=== PATIENT | female | born 1995 | race Caucasian/White ===

== ENCOUNTER 2017-09-11 14:31 | Emergency (ER) | END 2017-09-11 21:34 | disposition home or self-care (01) ==

== ENCOUNTER 2018-05-24 04:16 | Emergency (ER) | payer OTHER ==
[~2018-05-24] VITALS: Ht 157.5 cm; Wt 60.0 kg
[~2018-05-24 04:16] MED LIST: DOXY100T20 PO; FOLI-49 PO; GUAI1TBM12 PO; HYDR-4011 PO; IBUP-1542 PO; NAPR-985 PO
[2018-05-24 04:22] VITALS: Ht 157.5 cm; Wt 60.0 kg
[2018-05-24] MEDS ORDERED: ONDANSETRON (ODT) 4 MG TAB ODT STA (04:49)
[2018-05-24] MEDS ORDERED: IBUPROFEN 800 MG TAB PO ONE (05:00)
[2018-05-24 05:20] VITALS: BP 122/65; PULSE 78; RESP 18
[2018-05-24] MEDS ORDERED: IBUP-1542 PO (05:22)
[2018-05-24] MEDS ORDERED: NITR-58 PO (05:22)
--- NOTE | 2018-05-24 05:25 | ERD ---
ER Documentation Chief Complaint Chief Complaint R flank pain now,HAs&nausea x 4days HPI Patient is a 22-year-old female with previous kidney infection who presents with flank pain. The patient said that she has had migraine headache for the past 4 days and then right-sided flank pain. She said that her urine was cloudy and she thinks she might have a urine infection. She had chills but no fever. She tried tramadol yesterday. She called her primary doctor Dr. Jiménez but there were no appointments available until Friday. Therefore she decided to come to the emergency department. ROS All systems reviewed and are negative except as per history of present illness. Medications Home Meds Active Scripts Ibuprofen* (Motrin*) 600 Mg Tab, 600 MG PO Q6H PRN for PAIN AND OR ELEVATED TEMP, #30 TAB Prov:ALISA GUY MD 05/24/18 Nitrofurantoin Monohyd Macrocr* (Macrobid*) 100 Mg Capsr, 100 MG PO BID for 7 Days, CAP Prov:ALISA GUY MD 05/24/18 Naproxen* (Naprosyn*) 500 Mg Tablet, 500 MG PO BID PRN for PAIN AND/OR INFLAMMATION, #30 TAB Prov:MICAH,NAVIN 09/11/17 Guaifenesin/Dextromethorphan (Mucinex Dm ER 1,200-60 mg Tab) 1 Each Tbmp.12hr, 1 EACH PO BID for 3 Days, #20 TAB Prov:MICAH,NAVIN 09/11/17 Doxycycline Hyclate* (Doxycycline Hyclate*) 100 Mg Tablet.dr, 100 MG PO BID for 10 Days, #20 TAB Prov:MICAH,NAVIN 09/11/17 Ibuprofen* (Motrin*) 600 Mg Tab, 600 MG PO Q6, #30 TAB Prov:IRINA SAM PA-C 03/10/16 Hydrocodone/Acetaminophen ([place] 5-325 Tablet) 1 Each Tablet, 1 EACH PO Q6, #10 TAB Prov:IRINA SAM PA-C 03/10/16 Reported Medications Folic Acid* (Folic Acid*) 1 Mg Tablet, PO DAILY 12/25/11 Allergies Allergies: Coded Allergies: No Known Drug Allergy (Verified Allergy, Mild, 03/18/13) PMhx/Soc History of Surgery: Yes (Tonsillectomy) Anesthesia Reaction: No 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 Neck: Full range of motion. No meningismus. Resp: Clear to auscultation bilaterally Cardio: Regular rate and rhythm, no murmurs Abd: Soft, non tender, non distended. Normal bowel sounds Skin: No petechiae or rashes Back: No midline or flank tenderness Ext: No cyanosis, or edema Neur: Awake and alert Psych: Normal Mood and Affect Results 24 hrs Laboratory Tests Test 05/24/18 05:06 05/24/18 05:08 Bedside Urine pH (LAB) 6.0 Bedside Urine Protein (LAB) 1+ Bedside Urine Glucose (UA) Negative Bedside Urine Ketones (LAB) 3+ Bedside Urine Blood 1+ Bedside Urine Nitrite (LAB) Negative Bedside Urine Leukocyte Esterase (L 1+ POC Beta HCG, Qualitative NEGATIVE Current Medications Medications Dose Sig/Sue Start Time Status Last (Trade) Ordered Route PRN Stop Time Admin Dose Reason Admin Ibuprofen 800 mg ONCE ONCE 05/24/18 DC 05/24/18 (Motrin) PO 05:00 05/24/18 05:19 05:01 Ondansetron 4 mg ONCE STAT 05/24/18 DC 05/24/18 HCl (Zofran ODT 04:49 05/24/18 05:19 Odt) 04:50 Procedures/MDM Urine dip shows acute infection. Urine patency test is negative. Patient is a 22-year-old female who presents with what appears to be acute cystitis. I doubt pyelonephritis at this time. I doubt sepsis and the patient is well-appearing. I believe outpatient management is appropriate but the patient will need close follow-up with her primary doctor within 24-48 hours. She will be given a prescription for Macrobid and ibuprofen. She can return sooner for any worsening symptoms. Departure Diagnosis: Primary Impression: Cystitis Additional Impression: Flank pain Condition: Fair Patient Instructions: Cystitis Referrals: Dr. Jiménez Additional Instructions: Call your primary care doctor TOMORROW for an appointment during the next 1-2 days.See the doctor sooner or return here if your condition worsens before your appointment time. ALISA GUY MD May 24, 2018 05:25
== END 2018-05-24 05:32 | disposition home or self-care (01) ==
LOC: E/R 04:16
DX: N30.90 Cystitis, unspecified without hematuria (principal)
CPT/HCPCS: 81003; 81025; Z7502; Z7610; 99283

== ENCOUNTER 2018-10-22 17:34 | Emergency (ER) | payer OTHER ==
[~2018-10-22] VITALS: Ht 160 cm; Wt 60.9 kg
[~2018-10-22 17:34] MED LIST changes: +NITR-58 PO
[2018-10-22 17:53] VITALS: BP 186/86; PULSE 105; RESP 18; Ht 160 cm; Wt 60.9 kg
[2018-10-22] MEDS ORDERED: LIDOCAINE 1% (MPF) 5 ML VIAL INJ ONE (19:30)
[2018-10-22] MEDS ORDERED: CEFTRIAXONE 250 MG INJ IM ONE (19:30)
[2018-10-22] MEDS ORDERED: AZITHROMYCIN 500 MG TAB PO ONE (19:30)
--- NOTE | 2018-10-22 22:16 | ERD ---
ER Documentation Chief Complaint Chief Complaint NEEDS STD CHECK UP, EXBOYFRIEND TESTED POSITIVE FOR CHLAMYDIA HPI 23-year-old female presents for STD testing. States that her ex-boyfriend tested positive for chlamydia and she is convinced that she has a 2. States that she has been having some white vaginal discharge. Denies any dysuria, hematuria, vaginal pain, pelvic pain, abdominal pain, fevers, chills, vomiting, flank pain. ROS All systems reviewed and are negative except as per history of present illness. Medications Home Meds Active Scripts Ibuprofen* (Motrin*) 600 Mg Tab, 600 MG PO Q6H PRN for PAIN AND OR ELEVATED TEMP, #30 TAB Prov:ALISA GUY MD 05/24/18 Nitrofurantoin Monohyd Macrocr* (Macrobid*) 100 Mg Capsr, 100 MG PO BID for 7 Days, CAP Prov:ALISA GUY MD 05/24/18 Naproxen* (Naprosyn*) 500 Mg Tablet, 500 MG PO BID PRN for PAIN AND/OR INFLAMMATION, #30 TAB Prov:MICAH,NAVIN 09/11/17 Guaifenesin/Dextromethorphan (Mucinex Dm ER 1,200-60 mg Tab) 1 Each Tbmp.12hr, 1 EACH PO BID for 3 Days, #20 TAB Prov:MICAH,NAVIN 09/11/17 Doxycycline Hyclate* (Doxycycline Hyclate*) 100 Mg Tablet.dr, 100 MG PO BID for 10 Days, #20 TAB Prov:MICAH,NAVIN 09/11/17 Ibuprofen* (Motrin*) 600 Mg Tab, 600 MG PO Q6, #30 TAB Prov:IRINA SAM PA-C 03/10/16 Hydrocodone/Acetaminophen ([place] 5-325 Tablet) 1 Each Tablet, 1 EACH PO Q6, #10 TAB Prov:IRINA SAM PA-C 03/10/16 Reported Medications Folic Acid* (Folic Acid*) 1 Mg Tablet, PO DAILY 12/25/11 Allergies Allergies: Coded Allergies: No Known Drug Allergy (Verified Allergy, Mild, 03/18/13) PMhx/Soc History of Surgery: Yes (Tonsillectomy) Anesthesia Reaction: No 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 Neck: Full range of motion. No meningismus. Resp: Clear to auscultation bilaterally Cardio: Regular rate and rhythm, no murmurs Abd: Soft, non tender, non distended. Normal bowel sounds Skin: No petechiae or rashes Back: No midline or flank tenderness Ext: No cyanosis, or edema Neur: Awake and alert Psych: Normal Mood and Affect Results 24 hrs Laboratory Tests Test 10/22/18 19:24 POC Beta HCG, Qualitative NEGATIVE Current Medications Medications Dose Sig/Sue Start Time Status Last (Trade) Ordered Route PRN Stop Time Admin Dose Reason Admin Ceftriaxone 250 mg ONCE ONCE 10/22/18 DC 10/22/18 Sodium IM 19:30 10/22/18 19:30 (Rocephin) 19:31 Lidocaine 5 ml ONCE ONCE 10/22/18 DC 10/22/18 (Xylocaine INJ 19:30 10/22/18 19:30 1% (Mpf)) 19:31 1,000 mg ONCE ONCE 10/22/18 DC 10/22/18 Azithromycin PO 19:30 10/22/18 19:30 (Zithromax) 19:31 Procedures/MDM MDM: Given patient's history I told her that we could treat her empirically for chlamydia gonorrhea. She agreed to this. Urine was sent out for GC culture. I have low suspicion for acute coronary syndrome, AAA, mesenteric ischemia, lower lobe pneumonia, DKA, bowel perforation, cholecystitis, choledocholithiasis, ascending cholangitis, hepatic abscess, pancreatitis, PUD, splenic rupture, diverticulitis, pyelonephritis, nephrolithiasis, appendicitis, , ectopic , PID, ovarian torsion or tubo-ovarian abscess. Patient discharged with strict ER precautions. Patient advised to follow up with PMD. All questions answered at discharge. Departure Diagnosis: Primary Impression: Screening for STD (sexually transmitted disease) Additional Impression: Vaginal discharge Condition: Stable Patient Instructions: Understanding STDs, If You Think You Have an STD, Chlamydia, Female Referrals: [facility] YOU HAVE RECEIVED A MEDICAL SCREENING EXAM AND THE RESULTS INDICATE THAT YOU DO NOT HAVE A CONDITION THAT REQUIRES URGENT TREATMENT IN THE EMERGENCY DEPARTMENT. FURTHER EVALUATION AND TREATMENT OF YOUR CONDITION CAN WAIT UNTIL YOU ARE SEEN IN YOUR DOCTORS OFFICE WITHIN THE NEXT 1-2 DAYS. IT IS YOUR RESPONSIBILITY TO MAKE AN APPOINTMENT FOR FOLOW-UP CARE. IF YOU HAVE A PRIMARY DOCTOR --you should call your primary doctor and schedule an appointment IF YOU DO NOT HAVE A PRIMARY DOCTOR YOU CAN CALL OUR PHYSICIAN REFERRAL HOTLINE AT IF YOU CAN NOT AFFORD TO SEE A PHYSICIAN YOU CAN CHOSE FROM THE FOLLOWING [facility] [address] [facility] [address] [facility] [address] [facility] [address] [facility] [address] [facility] [facility]. [address] Additional Instructions: FOLLOW UP WITH YOUR PRIMARY CARE PHYSICIAN TOMORROW.Return to this facility if you are not improving as expected. Please call the hospital in 3 days for the results of your testing. HARINI KHALIL Oct 22, 2018 22:16
== END 2018-10-22 21:49 | disposition home or self-care (01) ==
LOC: FTE 17:34
DX: Z11.3 Encounter for screening for infections with a predominantly sexual mode of transmission (principal)
CPT/HCPCS: 81025; 87591; 96372; J0696; Z7502; Z7610